=== PATIENT | female | born 1965 | race Caucasian/White ===

== ENCOUNTER → 2016-11-06 | Outpatient (CLI) | payer BC ==
[~2016-11-06] MED LIST: COMBIVENT14.7 GM IH; EFFEXOR XR PO; FISH OIL 1,0001 EAC1 PO; LEVAQUIN750 MG PO; LORTAB PO; MULTIVITAMIN1 UDCAP PO; ROBITUSSIN DM T10 ML PO; SIMVASTATIN40 MG PO
--- NOTE | ~2016-11-06 | MY11 ---
[facility] A Service [facility] RADIOLOGY TEXT RESULTS PATIENT: LIZBET ALMAZAN [facility] 67 UNIT #: [id number] AGE: [address]: Alicia Richards MD SEX: F ORDER DR: [id number] [facility] [address] [place], [place] [address] [id number] O MR#: [id number] Acc #: [id number] NAME: LIZBET ALMAZAN : 1965 SEX: F STUDY DATE/TIME: 11/06/2016 16:48 [facility] ROOM: STUDY DESCRIPTION: MY Mammogram Screening Dig [place] Attending Physician: Alicia Richards M.D. Ordering Physician: Alicia Richards M.D. Primary Care Physician: Alicia Richards M.D. MEDICAL IMAGING REPORT This report is preliminary unless electronic signature is present EXAM Digital screening mammogram 11/06/2016 HISTORY 51-year-old woman no risk elevation. Annual screen. COMPARISON Digitized film screen images 02/09/2008, screening mammogram 03/02/2012 with diagnostic followup right breast including ultrasound 03/17/2012. FINDINGS Digital imaging of each breast was completed utilizing screening protocol. Additional bilateral MLO projections with an additional exaggerated craniocaudal view of the right breast. Review includes FDA-approved CAD device. Interval involution of fibroglandular parenchyma with continued parenchymal dominance in the left breast. There is an approximate 1 cm nodule projecting upper outer quadrant right breast posterior third. This will require additional imaging for accurate characterization. This would include high-resolution spot compression in exaggerated craniocaudal and true lateral projections along with targeted right breast ultrasound. No suspicious interval occurring abnormality in the left breast. IMPRESSION Incomplete mammographic evaluation. Additional right breast imaging is recommended. See full report with recommendations. Patients over the age of 40 are entered into a reminder system with target due date for the next mammogram. A result letter will also be sent to the patient. BIRADS: 0 Incomplete: Need additional imaging evaluation and/or prior [facility] A Service [facility] RADIOLOGY TEXT RESULTS PATIENT: LIZBET ALMAZAN [facility] 66 UNIT #: [id number] AGE: [address]: Alicia Richards MD SEX: F ORDER DR: mammograms for comparison STAT * RESULT Dictated by... Shaji Estes M.D. THIS IS AN ELECTRONICALLY VERIFIED REPORT Shaji Estes M.D. at 11/07/2016 11:28 AM BAHMAN/dinesh TD: 11/07/2016 09:15 JOB #: [id number] MEDICAL IMAGING REPORT Page 1 of 1 COPY
== END | disposition home or self-care (01) ==
LOC: CWCC 16:29
DX: Z12.31 Encounter for screening mammogram for malignant neoplasm of breast (principal); R92.8 Other abnormal and inconclusive findings on diagnostic imaging of breast
CPT/HCPCS: G0202

== ENCOUNTER → 2016-11-28 | Outpatient (CLI) | payer BC ==
--- NOTE | ~2016-11-28 | MY8 ---
[facility] A Service of [facility] RADIOLOGY TEXT RESULTS PATIENT: LIZBET ALMAZAN LOCATION: [facility] : 66 UNIT #: [id number] AGE: [address]: Alicia Richards MD SEX: F ORDER DR: [id number] [facility] [address] [place], [place] [address] [id number] O MR#: [id number] Acc #: [id number] NAME: LIZBET ALMAZAN. : 1965 SEX: F STUDY DATE/TIME: 11/28/2016 15:30 UNIT: [facility] ROOM: STUDY DESCRIPTION: MY Mammogram Dx Dig [place] Attending Physician: Alicia Richards M.D. Ordering Physician: Alicia Richards M.D. Primary Care Physician: Alicia Richards M.D. MEDICAL IMAGING REPORT This report is preliminary unless electronic signature is present EXAM Diagnostic right mammogram 11/28 INDICATIONS Right breast nodule in the deep upper right breast seen on recent screening exam. Patient has no current complaints. TECHNIQUE Digital true lateral view of the right breast was obtained in addition to a spot compression MLO views and spot compression exaggerated CC view. Study reviewed with a FDA-approved CAD device. COMPARISON STUDIES Comparison is made with 11/06/2016, 03/17/2012, and 03/02/2012. FINDINGS Images today confirm the presence of a small nodule measuring about 9 mm in size in the deep upper outer right breast. This is the same region of the breast that was evaluated on the mammogram in 2011. No associated microcalcifications. Ultrasound was performed of the upper outer quadrant of the right breast today. Ultrasound demonstrates a simple cyst with a maximum measurement of about 11 mm. This is at the 9 o'clock position, 9 cm from the nipple, and corresponds to the mammographic abnormality. There is a second smaller cyst at 9 o'clock, about 2 cm from the nipple, measuring about 5 mm in size. No solid masses are identified by ultrasound. Findings were discussed with the patient at the time of her examination today. IMPRESSION Mammographic abnormality in the deep upper outer right breast corresponds [facility] A Service of [facility] RADIOLOGY TEXT RESULTS PATIENT: LIZBET ALMAZAN LOCATION: [facility] : 66 UNIT #: [id number] AGE: [address]: Alicia Richards MD SEX: F ORDER DR: to a simple cyst by ultrasound. Routine yearly mammographic follow up recommended. BIRADS: 2 Benign Finding. Patients over the age of 40 are entered into a reminder system with target due date for the next mammogram. A result letter will also be sent to the patient. Dictated by... Erickson Foote Jr., M.D. THIS IS AN ELECTRONICALLY VERIFIED REPORT Erickson Foote Jr., M.D. at 11/29/2016 5:53 AM JOSE ALEJANDRO/alban TD: 11/28/2016 17:08 JOB #: [id number] MEDICAL IMAGING REPORT Page 1 of 1 COPY
--- NOTE | ~2016-11-28 | US24 ---
[facility] A Service of [facility] RADIOLOGY TEXT RESULTS PATIENT: LIZBET ALMAZAN LOCATION: [facility] : 67 UNIT #: [id number] AGE: [address]: Alicia Richards MD SEX: F ORDER DR: [id number] [facility] [address] [place], [place] [address] [id number] O MR#: [id number] Acc #: [id number] NAME: LIZBET ALMAZAN : 1965 SEX: F STUDY DATE/TIME: 11/28/2016 15:36 UNIT: [facility] ROOM: STUDY DESCRIPTION: US Breast Unilateral Attending Physician: Alicia Richards M.D. Ordering Physician: Alicia Richards M.D. Primary Care Physician: Alicia Richards M.D. MEDICAL IMAGING REPORT This report is preliminary unless electronic signature is present EXAM Right breast ultrasound, 11/28. INDICATION Abnormal mammogram showing a nodule in the deep upper outer right breast. FINDINGS For a full report please see the mammogram report dated 11/28/2016. Patients over the age of 40 are entered into a reminder system with target due date for the next mammogram. A result letter will also be sent to the patient. BIRADS: 2 Benign finding. Dictated by... Erickson Foote Jr., M.D. THIS IS AN ELECTRONICALLY VERIFIED REPORT Erickson Foote Jr., M.D. at 11/29/2016 5:53 AM JOSE ALEJANDRO/elida TD: 11/28/2016 17:24 JOB #: [id number] MEDICAL IMAGING REPORT Page 1 of 1 COPY
== END | disposition home or self-care (01) ==
LOC: CMAM 14:55
DX: R92.8 Other abnormal and inconclusive findings on diagnostic imaging of breast (principal)
CPT/HCPCS: 76641; G0206